=== PATIENT | male | born 1970 | race Caucasian/White ===

== ENCOUNTER 2020-05-14 16:08 | Emergency (ER) | payer BC, SELFPAY ==
[2020-05-14 16:14] VITALS: BP 141/73; PULSE 77; RESP 16; TEMP 38.4; O2SAT 98
--- NOTE | 2020-05-14 16:24 | ED.GENADULT ---
HPI - General Adult General Chief complaint: Nausea/Vomiting/Diarrhea Stated complaint: fever nausea achy Time Seen by Provider: 05/14/20 16:24 Source: patient Mode of arrival: ambulatory Limitations: no limitations History of Present Illness HPI narrative: Gil Smith is a 50 yo male with PMH of anxiety, HTN, who comes to express care with fever and nausea and dry heaving that started yesterday. He took some Coricidin last night to help him sleep; states is been unable to go to work for the last 2 days Denies any exposure in the community to antibiotic covid; working from home; precautions at the grocery store; ate pasta last night has been unable to keep anything down since last evening Related Data Home Medications Medication Instructions Recorded Confirmed atorvastatin 20 mg PO DAILY 05/14/20 05/14/20 fluoxetine 20 mg PO DAILY 05/14/20 05/14/20 lisinopril 40 mg PO DAILY 05/14/20 05/14/20 metoprolol succinate 100 mg PO DAILY 05/14/20 05/14/20 trazodone 50 mg PO HS 05/14/20 05/14/20 triamterene-hydrochlorothiazid 1 cap PO DAILY 05/14/20 05/14/20 Allergies Allergy/AdvReac Type Severity Reaction Status Date / Time No Known Allergies Allergy Verified 05/14/20 16:20 Review of Systems Review of Systems: Narrative: CONSTITUTIONAL: has fever, chills, sweats. EYES: Denies visual changes, redness, discharge. ENT: Denies rhinorrhea, congestion, sore throat, otalgia. CARDIOVASCULAR: Denies chest pain, palpitations, edema. RESPIRATORY: Denies dyspnea, wheezing, cough GASTROINTESTINAL: Denies abdominal pain, has nausea, has dry heaving and diarrhea. GENITOURINARY: Denies dysuria, hematuria, abnormal discharge SKIN: Denies rash or itching. NEUROLOGIC: Denies numbness, or focal weakness. PSYCHIATRIC: Denies anxiety or depression. [facility] Family History Family History Other Hypertension Social History Social History (Updated 05/14/20 @ 16:36 by Elayne Brown CNP) Smoking status: Never smoker Alcohol intake: current Comments At time of signature, I agree with nursing past medical, surgical, social and family history. There is no relevant family history pertinent to the presenting complaint. Has diagnosis of hypertension Exam Narrative: Exam Narrative: GENERAL: This is a well-nourished, well-developed patient, in moderate distress. States feels badly and is tired HEAD: normocephalic, atraumatic. EYES: Sclera clear/white. Vision is grossly intact. EARS: External ears normal, auditory canals clear and without drainage, TMs normal without perforation. Hearing grossly intact. NOSE: External nose normal without nasal discharge, nares without redness, no rhinorrhea. THROAT: Mucous membranes moist, posterior pharynx not erythematous NECK: Neck supple, CARDIOVASCULAR: Regular rate and rhythm without murmurs, gallops, or rubs. RESPIRATORY: Clear to auscultation. Breath sounds equal bilaterally. No wheezes, rales, or rhonchi. GASTROINTESTINAL: Abdomen soft, non-tender, SKIN: warm, intact with no suspicious lesions or rash, good texture and turgor. NEURO: awake, alert, and oriented to person, place and time. There were no obvious focal neurologic abnormalities. Steady gait EXTREMITIES: Normal range of motion. BACK: Nontender without deformity Course Course Emergency Course: Given Zofran and Toradol while here Discussed hydration and management of fever with Tylenol and ibuprofen alternating as well as Zofran for nausea and vomiting. Patient to gradually increase intake from clear liquids to full liquids to soft diet does not eat any fried foods in the next 24 hours. Encouraged judicious use of Imodium Abdominal pain increases or fever cannot be controlled should be seen in the ER Discussed COVID with patient and patient refused possible referral as believes has not had any infected contact Vital Signs Vital signs: Vital Signs Temperature 101
[2020-05-14] MEDS: KETOROLAC (*BKC) 60 MG/2 ML VIAL IM (16:49)
[2020-05-14] MEDS: ONDANSETRON HCL ODT 4 MG TABLET SUBLINGUAL (16:50)
[2020-05-14 17:04] VITALS: TEMP 37.7
== END 2020-05-14 17:09 | disposition home or self-care (01) ==
PROVIDERS: Emergency Provider Nurse Practitioner; PCP Internal Medicine
DX: K52.9 Noninfective gastroenteritis and colitis, unspecified (principal); F41.9 Anxiety disorder, unspecified
CPT/HCPCS: 96372; 99213; A9270; G0463; J1885